=== PATIENT | female | born 1960 | race Caucasian/White ===

== ENCOUNTER 2019-11-03 11:14 | Emergency (ER) | payer OTHER, SELFPAY ==
--- NOTE | ~2019-11-03 | XR_ITS ---
EXAMINATION: XR chest 2V EXAM DATE: 11/03/2019 12:27 INDICATION: Shortness of breath, cough, congestion, sinus pressure, headache. History of asthma. TECHNIQUE: Frontal and lateral projections of the chest obtained and reviewed. There is no prior hao dy for comparison. FINDINGS: The lungs are clear. There are no pleural effusions. The cardiomediastinal silhouette is within normal limits. There is no pneumothorax suspected. The bones and soft tissues are unremarkab le. IMPRESSION: No acute cardiopulmonary findings. Reviewed, dictated and finalized at location A.
[2019-11-03 11:21] VITALS: BP 124/75; PULSE 76; RESP 20; TEMP 36.6; O2SAT 99
[2019-11-03 13:00] LABS: Basophils Absolute Auto 0.1 K/mm3 (0.0-0.1); Basophils Percent Auto 0.6 % (0.2-1.2); Eosinophils Absolute Auto 0.3 K/mm3 (0-0.3); Eosinophils Percent Auto 3.7 % (0-4.4); Hematocrit 42.3 % (37.0-47.0); Immature Granulocyte Absolute 0.01 K/mm3 (0.00-0.031); Immature Granulocyte Percent A 0.1 % (0-0.5); Lymphocytes Absolute Auto 2.25 K/mm3 (0.9-3.2); Mean Corpuscular HGB Conc 33.1 g/dl (32-36); Mean Corpuscular Hemoglobin 28.5 pg (26-34); Mean Corpuscular Volume 86.2 fl (80-100); Mean Platelet Volume 10.2 fl (7.4-10.4); Monocytes Absolute Auto 0.5 K/mm3 (0.1-0.6); Monocytes Percent Auto 6.6 % (2.6-8.5); Neutrophils Absolute Auto 4.7 K/mm3 (1.3-6.7); Platelet Count Result 257 k/mm3 (150-375); Red Blood Count 4.91 M/mm3 (4.2-5.4); White Blood Count 7.8 K/mm3 (4.5-10.0)
[2019-11-03 13:15] LABS: Anion Gap 5 mmol/L (8-16); Blood Urea Nitrogen 13 mg/dL (7-17); Calcium 9.7 mg/dL (8.4-10.2); Carbon Dioxide 28 mmol/L (22-30); Chloride 105 mmol/L (98-107); Estimated Glomerular Filt Rate > 60; Glucose 98 mg/dL (65-105); Potassium 4.1 mmol/L (3.4-5.0); Sodium 138 mmol/L (137-145)
--- NOTE | 2019-11-03 13:15 | ED.GENADULT ---
HPI - General Adult General Chief complaint: Upper Respiratory Infection Stated complaint: sinus headache, chest cold Time Seen by Provider: 11/03/19 12:09 Source: patient History of Present Illness HPI narrative: Patient is a 59 y/o female complaining of facial pain, nasal congestion, right ear pain for last 2 days. She also has some chest tightness and cough. She denies any fever. She has been taking Zyrtec for allergies, but it's not helping with her symptoms. She denies any known exposure to COVID. Related Data Home Medications Medication Instructions Recorded Confirmed cetirizine [Zyrtec] 10 mg PO DAILY 11/03/19 guaifenesin [Mucinex] 1,200 mg PO BID 11/03/19 Allergies Allergy/AdvReac Type Severity Reaction Status Date / Time aloe Allergy Rash Verified 11/03/19 11:32 azithromycin Allergy Cramping Verified 11/03/19 11:32 [From Zithromax Z-Kemal] of the Muscles dextromethorphan Allergy Anaphylaxis Verified 11/03/19 11:32 [From Benylin DM] Review of Systems Constitutional: Constitutional: Denies chills, Denies fever(s), Denies headache(s) and Denies weakness Eyes: Eyes: Denies blurry vision ENT: Reports facial pain, Reports headache(s), Reports nasal congestion, Denies neck pain and Reports sore throat Cardiovascular: Cardiovascular: Reports chest pain and Denies dyspnea Respiratory: Respiratory: Reports cough and Denies dyspnea Gastrointestinal: Gastrointestinal: Denies abdominal pain, Denies diarrhea, Denies nausea and Denies vomiting Genitourinary: Genitourinary: Denies hematuria and Denies dysuria Musculoskeletal: Musculoskeletal: Denies back pain and Denies neck pain Neurologic: Denies headache(s) and Denies weakness Exam Const: General: no acute distress and well developed Orientation/consciousness: oriented to person, oriented to place, oriented to time and patient oriented x3 HENMT: Head: normocephalic Ears: external ears normal General nose exam: Normal external nose present Eyes: General: appearance normal, both eyes and all related structures Conjunctivae: conjunctivae normal Neck: Neck: normal visual inspection and full ROM Chest: Chest palpation & inspection: normal inspection of the chest and no tenderness Resp: Effort & Inspection: normal respiratory effort Auscultation: clear to auscultation bilaterally Cardio: Rate: regular rate Rhythm: regular rhythm GI: GI Palp: No abdominal tenderness and Yes Soft to palpation Skin: General skin exam: normal color and turgor normal Neuro: General: oriented to person, oriented to place, oriented to time and patient oriented x3 Cognition (Neuro): normal cognition Extrem: General: normal to inspection, full ROM and no pedal edema Psych: Appearance: grossly normal Mental Status: mental status grossly normal Affect: normal affect Course Reevaluation(s) Reevaluation #1: Patient declined EKG. Patient did not mention sore throat during initial interview, but did states that she has sore throat when she was about to be discharged. Posterior pharynx appear without erythema or abscess on re-exam. Strep test was offered, but patient declined. Date: 11/03/19 Vital Signs Vital signs: Vital Signs Temperature 36.6 C 11/03/19 11:21 Pulse Rate 76 11/03/19 11:21 Respiratory Rate 20 11/03/19 11:21 Blood Pressure 124/75 11/03/19 11:21 Pulse Oximetry 99 11/03/19 11:21 Temperature 36.6 C 11/03/19 11:21 Pulse Rate 75 11/03/19 14:39 Respiratory Rate 16 11/03/19 14:39 Blood Pressure 138/75 11/03/19 14:39 Pulse Oximetry 100 11/03/19 14:39 Medical Decision Making Vital Signs Vital Signs: Vital Signs Temperature 36.6 C 11/03/19 11:21 Pulse Rate 76 11/03/19 11:21 Respiratory Rate 20 11/03/19 11:21 Blood Pressure 124/75 11/03/19 11:21 Pulse Oximetry 99 11/03/19 11:21 Temperature 36.6 C 11/03/19 11:21 Pulse Rate 75 11/03/19 14:39 Respiratory Rate 16 11/03/19 14:3
--- NOTE | 2019-11-03 13:45 | PC.NURSE ---
attempted to do ekg on pt, upon arrival to room pt visibly upset, she has gotten dressed. pt tearful, throwing her hands up in the air and states that the doctor has not listened to her and she is not happy that he has not been back to see her or to explain why he keeps adding orders. pt states that she wants to refuse the ekg. CARLITOS Gonzalez informed, no new orders.
[2019-11-03 13:50] LABS: Troponin I < 0.012 ng/mL (0.000-0.034)
--- NOTE | 2019-11-03 14:24 | PC.NURSE ---
CHECKED ON PT AGAIN, PT PACING IN ROOM STILL VERY UPSET, TRACE EVIDENCE TECHNICIAN INFORMED OF PT COMPLAINTS, STATES SHE WILL SPEAK WITH THE ERP. NO NEW ORDERS.
--- NOTE | 2019-11-03 14:30 | PC.NURSE ---
ERP PRIMO AT BEDSIDE ASSESSING PT CONCERNS AT THIS TIME.
[2019-11-03 14:39] VITALS: BP 138/75; PULSE 75; RESP 16; O2SAT 100
== END 2019-11-03 14:41 | disposition home or self-care (01) ==
PROVIDERS: Emergency Provider Emergency Medicine
DX: J06.9 Acute upper respiratory infection, unspecified (principal); T78.40XA Allergy, unspecified, initial encounter
CPT/HCPCS: 36415; 71046; 80048; 84484; 85025; 99284

== ENCOUNTER 2021-05-08 08:34 | Emergency (ER) | payer OTHER, SELFPAY ==
--- NOTE | ~2021-05-08 | XR_ITS ---
XR foot RT min 3V 05/08/2021 09:09 Indication: Right foot pain after fall Procedure: 4 views right foot Comparison: No prior studies for comparison. Findings: There is mild osteoarthritis of the first MTP joint. Lisfranc joint intact. Small degenerat jeanmarie calcaneal enthesophyte at the plantar surface. No acute fracture, subluxation or dislocation. Impression: 1: No acute fracture. Reviewed, dictated and finalized at location A. Impression: 1: No acute fracture.
[2021-05-08 08:38] VITALS: BP 122/46; PULSE 84; RESP 18; TEMP 36.7; O2SAT 99
--- NOTE | 2021-05-08 09:10 | ED.FALL ---
HPI - Fall General Chief Complaint: Fall Stated Complaint: right foot pain Time Seen by Provider: 05/08/21 08:59 Source: patient and RN notes reviewed Mode of arrival: ambulatory Limitations: no limitations History of Present Illness HPI Narrative: Patient is 60 years old white female drove herself to the emergency room complaining of right ankle pain, after tripping and falling from standing position yesterday. Patient denies other injuries. Patient denies any fever, chills, nausea, vomiting, chest pain, back pain, headache or urinary symptoms Related Data Home Medications Medication Instructions Recorded Confirmed cetirizine [Zyrtec] 10 mg PO DAILY 11/03/19 albuterol sulfate INHALATION 05/08/21 05/08/21 Allergies Allergy/AdvReac Type Severity Reaction Status Date / Time aloe Allergy Rash Verified 05/08/21 08:59 azithromycin Allergy Cramping Verified 05/08/21 08:59 [From Zithromax Z-Kemal] of the Muscles dextromethorphan Allergy Anaphylaxis Verified 05/08/21 08:59 [From Benylin DM] Review of Systems Review of Systems: CONSTITUTIONAL: Denies fever, chills, or sweats. EYES: Denies visual changes, redness, or discharge. ENT: Denies rhinorrhea, congestion, sore throat, or otalgia. CARDIOVASCULAR: Denies chest pain, palpitations, or edema. RESPIRATORY: Denies cough or dyspnea. GASTROINTESTINAL: Denies abdominal pain, nausea, vomiting, or diarrhea. GENITOURINARY: Denies dysuria or hematuria. SKIN: Denies rash or itching. MUSCULOSKELETAL: Denies back pain, joint pain, or myalgia. NEUROLOGIC: Denies headache, numbness, or weakness. PSYCHIATRIC: Denies anxiety or depression. Exam Narrative: General appearance: Well-developed, well-nourished Skin: Normal color Head: Normocephalic, nontraumatic Eyes: Clear conjunctiva ENT: Oropharynx normal, ears normal, nose normal Neck: Supple, nontender Chest and respiratory: Airway patent, no respiratory distress, no accessory muscle use Heart: Regular rate/rhythm Abdomen: Soft, nontender, no organomegaly, quiet bowel sounds Vascular: Normal peripheral pulses, normal capillary refill. Musculoskeletal: Right ankle showed the diffuse tenderness, anteriorly, slight limited range of motion, no deformity or bruises Neurologic: Alert and oriented ?3, SODA DISPENSER is normal as tested, no gross motor deficit Course Course Emergency Course: Stable Vital Signs Vital signs: Vital Signs Temperature 36.7 C 05/08/21 08:38 Pulse Rate 84 05/08/21 08:38 Respiratory Rate 18 05/08/21 08:38 Blood Pressure 122/46 L 05/08/21 08:38 Pulse Oximetry 99 05/08/21 08:38 Temperature 36.7 C 05/08/21 08:38 Pulse Rate 73 05/08/21 09:51 Respiratory Rate 16 05/08/21 09:51 Blood Pressure 104/50 L 05/08/21 09:51 Pulse Oximetry 98 05/08/21 09:51 MDM - Fall MDM Narrative Medical decision making narrative: Right ankle trauma Imaging Data Radiologist's impression: Impressions Foot X-Ray 05/08/21 09:10 Impression: 1: No acute fracture. Critical Care Time Critical Care Time Critical Care Time: No Discharge Plan Discharge Clinical Impression: Right ankle sprain Qualifiers: Encounter type: initial encounter Involved ligament of ankle: unspecified ligament Qualified Code(s): S93.401A - Sprain of unspecified ligament of right ankle, initial encounter Patient Disposition: Home, Self-Care Condition: Stable Instructions: Antibiotic Form, Ankle Sprain (ED) Additional Instructions: Return if symptoms are worsening , call your family physician for appointment, take Tylenol as as needed for aches and pain, continue home medications., keep right foot elevated, crutc
[2021-05-08 09:51] VITALS: BP 104/50; PULSE 73; RESP 16; O2SAT 98
== END 2021-05-08 09:51 | disposition home or self-care (01) ==
PROVIDERS: Emergency Provider Emergency Medicine
DX: S93.401A Sprain of unspecified ligament of right ankle, initial encounter (principal); W01.0XXA Fall on same level from slipping, tripping and stumbling without subsequent striking against object, initial encounter
CPT/HCPCS: 73630; 99283

== ENCOUNTER 2021-08-29 10:23 | Emergency (ER) | payer OTHER, SELFPAY ==
[2021-08-29] VITALS (20 sets, daily range): BP systolic 118–132; BP diastolic 58–88; PULSE 69–101; RESP 14–16; TEMP 36.3; O2SAT 98–100
--- NOTE | ~2021-08-29 | XR_ITS ---
EXAMINATION: XR shoulder RT min 2V DATE: 08/29/2021 12:11 INDICATION: Right shoulder pain. Fall. TECHNIQUE: 4 views of right shoulder were obtained. COMPARISON: None. FINDINGS: Bone alignment is normal. No fracture. Glenohumeral joint is normal. There is moderate acro mioclavicular joint osteoarthritis. IMPRESSION: 1. Moderate right acromioclavicular joint osteoarthritis. Reviewed, dictated and finalized at location A.
--- NOTE | ~2021-08-29 | XR_ITS ---
EXAMINATION: XR shoulder LT min 2V DATE: 08/29/2021 12:11 INDICATION: Left shoulder pain. TECHNIQUE: 4 views of left shoulder were obtained. COMPARISON: None. FINDINGS: Bone alignment is normal. No fracture. There is mild osteoarthritis of the acromioclavicula r joint. Glenohumeral joint is normal. IMPRESSION: 1. Mild acromioclavicular joint osteoarthritis. Reviewed, dictated and finalized at location A.
--- NOTE | ~2021-08-29 | CT_ITS ---
EXAMINATION: CT cervical spine wo con DATE: 08/29/2021 12:05 INDICATION: Fall with head injury TECHNIQUE: Computed tomography (CT) of the cervical spine was performed without intravenous contrast. Automated exposure control and iterative reconstruction technique were employed. The dose-length pro duct was 355.69 mGy-cm. COMPARISON: None FINDINGS: Alignment is normal. Vertebral body heights are normal. No fracture. Mild disc height loss at C5-C6 w ith severe bilateral uncovertebral osteoarthritis contributing to mild bilateral neural foraminal mani nosis at this level. Small posterior endplate osteophytes also result in minimal central canal stenos is at this level. Multilevel mild cervical facet osteoarthritis. Multinodular goiter. Cervical soft t issues are otherwise unremarkable. Visualized apices of lungs are clear. IMPRESSION: 1. Cervical spondylosis, mild at C5-C6 and otherwise minimal. No acute osseous abnormality. Reviewed, dictated and finalized at location B.
--- NOTE | ~2021-08-29 | CT_ITS ---
EXAMINATION: CT thoracic spine wo con DATE: 08/29/2021 13:11 INDICATION: Thoracic spine midline tenderness. Fall. TECHNIQUE: Computed tomography (CT) of the thoracic spine was performed without intravenous contrast. Automated exposure control and iterative reconstruction technique were employed. The dose-length pro duct was 731.85 mGy-cm. COMPARISON: Chest 2 views 11/03/2019 FINDINGS: There is mild scarring at the lung apices. There is 8 degrees dextrocurvature of thoracic s pine. There is a compression fracture of T4 with less than 1/5 loss of height. There is a benign bone island in T3 posterior elements. Intervertebral disc heights are normal. There is multilevel mild fa cet joint osteoarthritis. No neural foraminal stenosis. No central canal stenosis. IMPRESSION: 1. Age-indeterminate T4 compression fracture, new from 11/03/2019. Reviewed, dictated and finalized at location A.
--- NOTE | ~2021-08-29 | CT_ITS ---
EXAMINATION: CT brain wo con DATE: 08/29/2021 12:04 INDICATION: Head injury post fall TECHNIQUE: Computed tomography (CT) of the head was performed without intravenous contrast. Sagittal and coronal reconstructions were performed. The mA was adjusted according to patient size. Iterative reconstruction technique was employed. The dose-length product was 529.67 mGy-cm. COMPARISON: None FINDINGS: No fracture. No acute intracranial hemorrhage, acute infarction or abnormal extra axial fluid collect ion. Ventricles are normal and symmetric. No mass/mass effect. The orbits, paranasal sinuses and mast oid air cells are normal. IMPRESSION: 1. Normal head CT. No fracture or acute intracranial process. Reviewed, dictated and finalized at location B.
--- NOTE | 2021-08-29 12:58 | ED.FALL ---
HPI - Fall General Chief Complaint: Fall <YONAS Brown Last Filed: 08/29/21 19:35> Stated Complaint: head and shoulder blade pain <YONAS Brown Last Filed: 08/29/21 19:35> Time Seen by Provider: 08/29/21 11:49 <YONAS Brown Last Filed: 08/29/21 19:35> Source: patient <YONAS Brown Last Filed: 08/29/21 19:35> Mode of arrival: ambulatory <YONAS Brown Last Filed: 08/29/21 19:35> Limitations: no limitations <YONAS Brown Last Filed: 08/29/21 19:35> History of Present Illness HPI Narrative: Patient is a 60-year-old female who presents the ED with report of fall and head injury. Patient reports she was trying to open her garage door manually today and with using the pull level, when the string snapped, causing her to fall backwards. She hit her posterior head on her concrete garage floor, but denied loss of consciousness. Did have a brief episode of dizziness after the fall, but denies any since. No vision changes. She complains of pain to her occipital head, posterior neck, upper back, and bilateral shoulder blades, worse on right side. She has not taken anything for pain prior to arrival. She is not on any blood thinners. No lower back pain. No chest pain, difficulty breathing, pain with inspiration. <YONAS Brown Last Filed: 08/29/21 19:35> Related Data Home Medications: Home Medications Medication Instructions Recorded Confirmed cetirizine 10 mg capsule (Zyrtec) 10 mg PO DAILY 11/03/19 albuterol sulfate 90 mcg/actuation inhalation 05/08/21 05/08/21 aerosol inhaler <YONAS Brown Last Filed: 08/29/21 19:35> Allergies/Adverse Reactions: Allergies Allergy/AdvReac Type Severity Reaction Status Date / Time aloe Allergy Rash Verified 08/29/21 10:42 azithromycin Allergy Cramping Verified 08/29/21 10:42 [From Zithromax Z-Kemal] of the Muscles dextromethorphan Allergy Anaphylaxis Verified 08/29/21 10:42 [From Benylin DM] <Loni Davis PA-C - Last Filed: 08/29/21 19:35> Review of Systems Review of Systems: CONSTITUTIONAL: Denies fever, chills, or sweats. EYES: Denies visual changes. CARDIOVASCULAR: Denies chest pain. RESPIRATORY: Denies dyspnea, pain with inspiration. GASTROINTESTINAL: Denies abdominal pain, nausea, vomiting, or diarrhea. SKIN: Denies wounds. MUSCULOSKELETAL: Reports posterior head pain, neck pain, upper back pain, scapular pain. Denies low back pain. NEUROLOGIC: Reports HI, dizziness. Denies LOC, numbness, or weakness. <Loni Davis PA-C - Last Filed: 08/29/21 19:35> All systems reviewed & are unremarkable except as noted in HPI and below <Loni Davis PA-C - Last Filed: 08/29/21 19:35> PMFSH Past Medical History Medical History: Medical History (Updated 08/30/21 @ 00:00 by [email or web address]) No significant past medical history <Loni Davis PA-C - Last Filed: 08/29/21 19:35> Surgical History Surgical History: Surgical History (Updated 08/29/21 @ 19:31 by Loni Davis PA-C) No pertinent past surgical history <Loni Davis PA-C - Last Filed: 08/29/21 19:35> Social History Social History: Social History (Updated 08/29/21 @ 19:31 by Loni Davis PA-C) Smoking status: Never smoker <Loni Davis PA-C - Last Filed: 08/29/21 19:35> Exam Narrative: GENERAL: Well appearing, well-nourished, non-toxic, in no acute distress. HEAD: Normocephalic, atraumatic. EYES: PERRL/EOMI, conjunctivae clear bilaterally. NECK: Supple. No adenopathy, no masses. Normal range of motion. Minimal lower cervical midline spinal tenderness. RESPIRATORY: Airway patent, respirations nonlabored. Clear to auscultation bilaterally, no rales, rhonchi, wheezing. No splinting. CARDIOVASCULAR: Regular rate and rhythm without murmurs, rubs, or gallops. Peripheral pulses 2+ and equal bilaterally. ABDOMINAL: Soft, nontender, nondistended
[2021-08-29] MEDS: KETOROLAC (*BKC) 60 MG/2 ML VIAL IM (13:24)
== END 2021-08-29 14:23 | disposition home or self-care (01) ==
PROVIDERS: Emergency Provider Emergency Medicine
DX: S09.90XA Unspecified injury of head, initial encounter (principal); S22.040A Wedge compression fracture of fourth thoracic vertebra, initial encounter for closed fracture; M47.812 Spondylosis without myelopathy or radiculopathy, cervical region; M19.012 Primary osteoarthritis, left shoulder; M19.011 Primary osteoarthritis, right shoulder; W18.39XA Other fall on same level, initial encounter
CPT/HCPCS: 70450; 72125; 72128; 73030; 96372; 99284; J1885

== ENCOUNTER 2021-10-20 10:32 | Outpatient (CLI) | payer OTHER, SELFPAY ==
--- NOTE | ~2021-10-20 | XR_ITS ---
EXAMINATION: XR thoracic spine 2V DATE: 10/20/2021 10:59 INDICATION: Unspecified fracture of unspecified thoracic vertebral body TECHNIQUE: 'S of the thoracic spine are obtained. COMPARISON: CT, 08/29/2021 FINDINGS: When compared to the prior CT, there is no change in the previously described T4 compressio n fracture fracture is identified. Bone alignment is normal. Small degenerative osteophytes project f rom the anterior endplates of multiple vertebral bodies. There is mild loss of intervertebral disc sp kimmy height at multiple levels in the thoracic spine. IMPRESSION: 1. Stable compression fracture of T4. Reviewed, dictated and finalized at location A.
== END 2021-10-20 10:33 | disposition home or self-care (01) ==
PROVIDERS: Visit Provider Neurological Surgery
DX: M48.54XA Collapsed vertebra, not elsewhere classified, thoracic region, initial encounter for fracture (principal)
CPT/HCPCS: 72070

== ENCOUNTER 2021-12-01 10:12 | Outpatient (CLI) | payer OTHER, SELFPAY ==
--- NOTE | ~2021-12-01 | XR_ITS ---
EXAMINATION: XR thoracic spine 2V DATE: 12/01/2021 10:38 INDICATION: T4 compression fracture TECHNIQUE: One AP, lateral and lateral swimmer's views of the thoracic spine were obtained. COMPARISON: 10/20/2021 FINDINGS: Alignment is normal. No significant interval change in a T4 superior endplate compression fracture wi th approximately 20% vertebral body height loss which is best appreciated on the frontal projection. Remaining vertebral body heights are normal. Mild disc height loss at several levels in the mid to lo wer thoracic spine. Visualized portion of the lungs are clear. Heart size and mediastinal silhouette are normal.. IMPRESSION: 1. No interval change in a T4 compression fracture with 20% vertebral body height loss. Reviewed, dictated and finalized at location B. IMPRESSION: 1. No interval change in a T4 compression fracture with 20% vertebral body heig ht loss.
== END 2021-12-01 10:13 | disposition home or self-care (01) ==
PROVIDERS: Visit Provider Neurological Surgery
DX: S22.009A Unspecified fracture of unspecified thoracic vertebra, initial encounter for closed fracture (principal)
CPT/HCPCS: 72070

== ENCOUNTER 2024-06-24 08:57 | Outpatient (CLI) | payer OTHER, SELFPAY ==
--- NOTE | ~2024-06-24 | XR_ITS ---
XR chest 2V 06/24/2024 09:12 Indication: Acute cough Procedure: 2 view chest Comparison: 11/03/2019 Findings: Heart size normal. No focal air space disease, pulmonary edema, pleural effusion or suspect ed pneumothorax. There is apical pleural thickening/scarring. Impression: 1: No acute cardiopulmonary disease. Reviewed, dictated and finalized at location A. Impression: 1: No acute cardiopulmonary disease.
== END 2024-06-24 08:58 | disposition home or self-care (01) ==
LOC: MICIMG 08:59
DX: R05.1 Acute cough (principal)
CPT/HCPCS: 71046

== ENCOUNTER 2024-10-06 13:57 | Emergency (ER) | payer MEDICARE, OTHER, SELFPAY ==
[2024-10-06] VITALS (21 sets, daily range): BP systolic 106–138; BP diastolic 39–61; PULSE 70–94; RESP 12–28; TEMP 36.3–36.5; O2SAT 95–99
--- NOTE | ~2024-10-06 | XR_ITS ---
EXAMINATION: XR chest 2V 10/06/2024 16:17 INDICATION: Chest pain and epigastric pain for 2 hours COMPARISON: Chest x-ray 06/24/2024 and 11/03/2019 FINDINGS: The cardiomediastinal silhouette is within normal limits. There are no pleural effusions. There is no pneumothorax suspected. No focal pulmonary consolidation. Grossly stable biapical scarr ing. IMPRESSION: 1: NO ACUTE CARDIOPULMONARY DISEASE. Reviewed, dictated and finalized at location A.
--- OUTSIDE RECORDS SUMMARY | 2024-10-06 15:05 | XMS_ITS ---
Author Organization [facility]. Address [address] [place] [id number] Care Team Providers Care Wilderness Guide Name Role Phone Dr. Farooq Kowalski Primary Care Provider [phone] Migration, Provider Unavailable Unavailable Allergies Allergen (clinical drug ingredient) Drug/Non Drug Allergy documented on EMR Reaction Allergy Type Onset Date Status BENILYN COUGH MED (uncoded) SOB Allergy Active Vaccine product containing Influenza virus antigen (medicinal product) FLU SHOT (uncoded) stomach upset Allergy A ctive Claritin insomnia Drug Allergy Active azithromycin Zithromax cramps Drug Allergy Acti ve Aloe rash Drug Allergy Active hydrocodone HYDROcodone dizziness Drug Allergy Act jeanmarie [facility] Conversion Encounter Medications Medication SIG (Take, Route, Frequency, Duration) Notes Start Date End Date Status PROAIR HFA 90 MCG/INH AEROSOL 2 PUFF(S) INHALED 4 TIMES A DAY; Duration: 30 DAYS *Please review for potential replacement for e-prescription and drug interaction check* 09/12/2017 Active Allergy Relief 10MG 1 DAILY *Please revi ew and [facility]. If intended option is not shown, discontinue and re-order from Quick Search* Active NEBULIZER MACHINE WITH ADULT MASK & TUBING DX: J20.9 USING DX J45.998 EVERY 6 HOURS NEEDED *Please review for potential replacement for e-prescription and drug interaction check* 07/02/2019 Active ASA 81MG EC TABLET ORALLY *Please revie w for potential replacement for e-prescription and drug interaction check* Active Encounters Encounter Location Date Provider Diagnosis [facility] [address] [place], [place] [id number] 11/10/2023 Provider Migration Mild intermittent asthma, uncomplicated J45.20 Assessments Encounter Date Diagnosis (ICD Code) Assessment Notes Treatment Notes Treatment Clinical Notes Section Notes 11/10/2023 Mild intermittent asthma, uncomplicated (ICD-10 - J45.20) Plan Of Treatment Medication Medication Name Sig Start Date Stop Date Notes PROAIR HFA 90 MCG/INH AEROSOL 2 PUFF(S) INHALED 4 TIMES A DAY; Duration: 30 DAYS 09/12/2017 *Please review for potential replacement for e-prescription and drug interaction check* NEBULIZER MACHINE WITH ADULT MASK & TUBING DX: J20.9 USING DX J45.998 EVERY 6 HOURS NEEDED 07/02/2019 *Please review for potential replacement for e-prescription and drug interaction check* Progress Notes * NATE LOUIS ADOB:1960 (64 yo F)Acc No.[id number]:11/10/2023 Patient: NATE HIDALGO Provider: :1960 A ge:63 Y S ex:Female Date:11/10/2023 Address[facility] [id number] Pcp:Dr. Farooq Kowalski Subjective: * Chief Complaints: * M tum To [facility] Conversion Encounter * Medications: T akingAllergy Relief 10MG 1 DAILY ASA 81MG EC TABLET ORALLY Taking Allergy Relief 10MG 1 DAILY Taking ASA 81MG EC TABLET ORALLY * Allergies: C laritin: insomniaZithromax: crampsAloe: rashFLU SHOT: stomach upsetBENILYN COUGH MED: SOBHYDROcodone: dizziness Assessment: * Assessment: 1. M ild intermittent asthma, uncomplicated - J45.20 Plan: * Treatment: 2. O thers Start NEBULIZER MACHINE WITH ADULT MASK & TUBING, DX: J20.9, USING, DX J45.998, EVERY 6 HOURS NEEDED, 1, Refills 0. * Electronic signature of Prov ider Migration on 10/06/2024 at 03:05 PM CDT Sign off status: Pending * Provider: Date: 0 11/10/2023 Generated for Stacy davis/Ferdinand/eTransmitting on: 0 10/06/2024 03:05 PM CDT
--- OUTSIDE RECORDS SUMMARY | 2024-10-06 15:05 | XMS_ITS | Patient Health Record ---
Author Organization [facility]. Address [address] [place] [phone] Care Team Providers Care Husker Operator Name Role Phone Dr. Farooq Kowalski Primary Care Provider Migration, Provider Unavailable Unavailable Allergies Allergen (clinical [...] hydrocodone HYDROcodone dizziness Drug Allergy Act jeanmarie Reason For Referral No Information Medications Medication SIG (Take, Route, Frequency, Duration) Notes Start Date End Date Status PROAIR HFA 90 MCG/INH AEROSOL 2 PUFF(S) INHALED 4 TIMES A DAY; Duration: 30 DAYS *Please review for potential replacement for e-prescription and drug interaction check* 09/12/2017 Active Allergy Relief 10MG 1 DAILY *Please revi ew and pick correct strength-formulation from ChatLingual options. If intended option is not shown, discontinue and re-order from Quick Search* Active NEBULIZER MACHINE WITH ADULT MASK & TUBING DX: J20.9 USING DX J45.998 EVERY 6 HOURS NEEDED *Please review for potential replacement for e-prescription and drug interaction check* 07/02/2019 Active ASA 81MG EC TABLET ORALLY *Please revie w for potential replacement for e-prescription and drug interaction check* Active Immunizations Vaccine Route Administration Date Status Comme nts TDAP (adult) IM Intramuscular 01/01/2018 Complete Social History Social History Additional Details Category Social Info Options Details Social History Alcohol: no Sexually active: yes Recreational drug use: no Exercise: no Caffeine: yes frequency: Soda occasionally, maybe 1 can a day Problems Problem Type SNOMED Code ICD Code Onset Dates Problem Status W/U Status Risk Notes Problem Acute bronchiolitis (5154472) Acute bronchiolitis due to other infectious organisms (J21.8) Active confirmed Problem Allergic rhinitis du e to allergen (52968115) Allergic rhinitis due to allergen (J30.2) Active confirmed Problem Bronchitis (90745508) Bronchitis NOS (490) Active confirmed Problem Urinary frequency (437532352) Urinary frequency (788.41) Active confirmed Problem Bartholin's gland cy st (85194049) Bartholin's gland cyst (616.2) Active confirmed Problem Lipoma (30691146) LIPOMA NOS (214.9) Active confirmed Problem Asthma (925990999) Asthma NOS (J45.998) Active confirmed Problem Routine gynecologic examination done (08024296304148) ROUTINE WASTE REMOVALIST EXAMINATION (V72.31) Active confirmed Problem Allergic rhinitis (08259115) allergic rhinitis (477.9) Active confirmed Problem Chill (47905606) Chills (without fever) (780.64) Active confirmed Problem Fever (644344854) Fever (780.61) Active confirm ed Problem Mixed hyperlipidemia (312992284) Mixed hyperlipidemia (E78.2) Active confirmed Problem Dysfunction of right eustachian tube (6982455566077776) Other specified disorders of Eustachian tube, right ear (H69.81) Active confirmed Problem Acute maxillary sinusitis (16495905) Acute recurrent maxillary sinusitis (J01.01) Active confirmed Problem Acute bronchitis (62639815) bronchitis acute due to other organisms (J20.8) Active confirmed Problem Chronic rhinitis (02896553) Chronic rhinitis (J31.0) Active confirmed Problem Mild intermittent asthma (338246515) Mild intermittent asthma, uncomplicated (J45.20) Active confirmed Problem Acute interstitial pneumonitis (672015293) Acute interstitial pneumonitis (J84.114) Active confirmed Problem Gastro-esophageal reflux disease without esophagitis (518622587) Gastro-esophageal reflux disease without esophagitis (K21.9) Active confirmed Problem Arthralgia of the ankle and/or foot (631532944) Pain in left ankle and joints of left foot (M25.572) Active confirmed Problem Cervicalgia (29432951) Cervicalg ia (M54.2) Active confirmed Problem Pain in limb (26907970) Pain in right toe(s) (M79.674) Active confirmed Problem Shortness of breath (049518636) Shortness of breath (R06.02) Active confirmed Problem Pain in throat (649922956) Pain in throat (R07.0) Active confirmed Problem Right upper quadrant pain (860212745) Right upper quadrant pain (R10.11) Active confirmed Problem Nausea (726467113) Nausea (R11.0) Active confir med Problem Pain (55769895) Pain, unspecifie d (R52) Active confirmed Problem Contusion of toe (28555197) Contusion of right lesser toe(s) without damage to nail, initial encounter (S90.121A) Active confirmed Problem Pure hypercholesterolemia (072776353) hypercholesterole toña,familial (E78.01) Active confirmed Problem Microscopic hematuri a (751580414) Other microscopic hematuria (R31.2) Active confirmed Problem Headache (80420578) Headache (R51) Active confi rmed Problem Pain in left foot (966889656600322) Pain in left foot (M79.672) Active confirmed Problem Plantar fascial fibromatosis (49073890) Plantar fascial fibromatosis (M72.2) Active confirmed Problem Acute bronchospasm (94645876863537) Acute bronchospasm (J98.01) Active confirmed Problem acute bronchilitis (J21.8) Active confirmed Problem Visual disturbance (69845545) Unspecified visual disturbance (H53.9) Active confirmed Problem Sinusitis (81353478) Sinusitis (461.9) Active c onfirmed Problem Shoulder pain (65592836) shoulder pain (719.41) Active confirmed Problem Cough (41390827) Cough (496) Active confirmed Problem Radiculopathy (21210147) Radiculopathy (729.2) Active confirmed Problem Back pain (930620751) Back pain (724.5) Active confirmed Problem Urinary tract infectious disease (disorder) (21471834) UTI [Urinary tract infection] (r82.7) Active confirmed Problem Dyspnea (902890138) Dyspnea, unspecified (R06.00) Active confirmed Problem Cough (90489236) Cough (R05) Active confirmed Problem Pain in limb (63987426) Pain in right finger(s) (M79.644) Active confirmed Problem Localized, primary osteoarthritis of the hand (531530316) Unilateral primary osteoarthritis of first carpometacarpal joint, right hand (M18.11) Active confirmed Problem Acute sinusitis (63138804) acute sinusitis (J32.9) Active confirmed Problem Cough variant asthma (614180647) asthma cough variant (J45.991) Active confirmed Encounters Encounter Location Date Provider Diagnosis [facility]. [address] [place] [phone] 11/10/2023 Provider Migration Mild intermittent asthma, uncomplicated J45.20 Assessments Encounter Date Diagnosis (ICD Code) Assessment Notes Treatment Notes Treatment Clinical Notes Section Notes 11/10/2023 Mild intermittent asthma, uncomplicated (ICD-10 - J45.20) Plan Of Treatment Pending Test Test Name Order Date Cholesterol 05/04/2006 Urinalysis (in house by doctor's office) 05/16/2005 Mammogram 01/16/2011 gallbladder sono 04/30/2006 CXR 12/24/2018 CXR 03/03/2013 xray lt knee 07/05/2005 sinus xray 07/05/2006 xray right knee 07/05/2005 LEFT KNEE 07/26/2011 CHEST X-RAY 01/17/2012 CHEST X-RAY 11/24/2005 CHEST X-RAY 02/08/2006 CHEST X-RAY 07/05/2006 CHEST X-RAY 03/19/2018 CHEST X-RAY 05/08/2018 CHEST X-RAY 12/05/2010 CHEST X-RAY 01/01/2014 CHEST X-RAY 09/03/2017 CHEST X-RAY 05/09/2017 rib xray 01/23/2018 PFT'S PRE & POST 12/05/2010 left foot xray 01/03/2018 left foot xray 01/20/2016 biopsy 11/03/2013 Lipid Profile (Fasting) 01/16/2011 SONO - Abdominal/gallbladder 08/13/2015 respiratory allergy test 07/15/2013 excision and destruction 11/03/2013 right foot xray 04/01/2018 48 hour holter monitor 10/16/2013 clavicle right 08/13/2015 UA/M w/rflx Culture, Routine 05/15/2017 CBC With Differential/Platelet 8 Lipid Panel 05/15/2017 CHEM 16 05/15/2017 Insurance Providers Payer Name Payer Address Payer Phone Subscriber Number Group Number Insured Name Patient Relationship to Insured Coverage Start Date Coverage End Date [employer] [address] [place] [id number] [employer] Self - patient is the insured 3 [employer] [address] [place] [address] [employer] [place] Self - patient is the insured Medications Administered Medication Instructions Date of Administration Dosage Notes Rocephin injection 09/03/2017 2 mL 09/07 Rocephin injection 09/04/2017 1 g Medical (General) History Medical History History ICD Code asthma frequent bouts of bronchitis Seasonal Allergy Surgical History Surgery Date(Month/Year) had teeth removed 04/2011 Hospitalization History Reason Date(Month/Year) [facility] Bronchitis 08/2017
--- NOTE | 2024-10-06 15:26 | ED.GENADULT ---
HPI - General Adult General Chief complaint: Unspecified <Fiorella Molina PA-C - Last Filed: 10/07/24 10:04> Stated complaint: shaky epigastric pain <Fiorella Molina PA-C - Last Filed: 10/07/24 10:04> Time Seen by Provider: 10/06/24 15:27 <Fiorella Molina PA-C - Last Filed: 10/07/24 10:04> Focused HPI: This is a 64 year old female that presents to the ER for exertional shortness of breath. Ongoing since this morning. Reports she feels shaky. Has epigastric abdominal discomfort. GENERAL: Well-appearing, well-nourished, and in no acute distress. HEAD: Normocephalic, atraumatic. CHEST: Clear to auscultation. ?No respiratory distress. HEART: Regular rate and rhythm.? NEURO: ?Alert and oriented x3. Patient screened in triage and initial orders placed.? ?Additional care and disposition to be based upon?diagnostic testing and treatment. <Fiorella Molina PA-C - Last Filed: 10/07/24 10:04> History of Present Illness HPI narrative: Agree with HPI. Patient reports epigastric/lower sternal chest discomfort that has improved. Has not eaten since this morning, does feel slightly nauseated. No cardiac history. <Brown Croft MD - Last Filed: 10/06/24 22:04> Related Data Home medications: Home Medications ?Medication ?Instructions ?Recorded ?Confirmed ?Last Taken ?Type albuterol sulfate 90 mcg/actuation inhalation 05/08/21 12/01/21 Unknown History aerosol inhaler acetaminophen 650 mg 650 mg PO Q12H 12/01/21 12/01/21 Unknown History tablet,extended release (Pain Relief (acetaminophen)) benzonatate 100 mg capsule 100 mg PO TID PRN 12/01/21 12/01/21 Unknown History <Fiorella Molina PA-C - Last Filed: 10/07/24 10:04> Allergies/adverse reactions: Allergies Allergy/AdvReac Type Severity Reaction Status Date / Time aloe Allergy Rash Verified 12/01/21 11:01 azithromycin (From Zithromax Allergy Cramping Verified 12/01/21 11:01 Z-Kemal) of the Muscles dextromethorphan (From Allergy Anaphylaxis Verified 12/01/21 11:01 Benylin DM) <Fiorella Molina PA-C - Last Filed: 10/07/24 10:04> Review of Systems Review of Systems: Gen.: Denies fevers or chills Eyes: Denies eye pain or visual change ENT: Denies congestion Respiratory: Shortness of breath, resolved. Denies cough. CV: Chest pain. Denies palpitations. GI: Denies abdominal pain nausea, emesis or diarrhea denies burning, urgency, frequency or hematuria Musculoskeletal: Denies back pain or muscle pain Neuro: Light headedness. Denies numbness, tingling, weakness or focal weakness Skin: Denies rash Except as documented, all other systems reviewed and negative <Brown Croft MD - Last Filed: 10/06/24 22:04> [facility] Past Medical History Medical History: Medical History Arthritis Asthma Bronchitis No significant past medical history <Fiorella Molina PA-C - Last Filed: 10/07/24 10:04> Surgical History Surgical History: Surgical History History of tonsillectomy No pertinent past surgical history <Fiorella Molina PA-C - Last Filed: 10/07/24 10:04> Family History Family History: Family History Other Asthma Diabetes mellitus Heart disease <Fiorella Molina PA-C - Last Filed: 10/07/24 10:04> Social History Social History: Social History Smoking status: Former smoker Alcohol intake: never Substance use: never Substance use type: does not use Living arrangements: alone Occupation/Education: occupation Additional occupation/education comments: [employer] <Fiorella Molina PA-C - Last Filed: 10/07/24 10:04> Course Vital Signs Vital signs: Vital Signs Temperature 97.4 F L 10/06/24 13:57 Pulse Rate 94 10/06/24 13:57 Respiratory Rate 18 10/06/24 13:57 Blood Pressure 108/57 L 10/06/24 13:57 Pulse Oximetry 99 10/06/24 13:57 Oxygen Delivery Room Air 10/06/24 13:57 Temperature 97.7 F 10/06/24 20:11 Pulse Rate 73 10/06/24 20:11 Respiratory Rate 16 10/06/24 20:11 Blood Pressure 106/61 10/06/24 20:11 Pulse Oximetry 97 10/06/24 20:11 Oxygen Delivery Room Air 10/06/24 17:42 <Fiorella Molina PA-C - Last Filed: 10/07/24 10:04> Vital Signs Temperature 97.4 F L 10/06/24 13:57 Pulse Rate 94 10/06/24 13:57 Respiratory Rate 18 10/06/24 13:57 Blood Pressure 108/57 L 10/06/24 13:57 Pulse Oximetry 99 10/06/24 13:57 Oxygen Delivery Room Air 10/06/24 13:57 Temperature 97.7 F 10/06/24 20:11 Pulse Rate 73 10/06/24 20:11 Respiratory Rate 16 10/06/24 20:11 Blood Pressure 106/61 10/06/24 20:11 Pulse Oximetry 97 10/06/24 20:11 Oxygen Delivery Room Air 10/06/24 17:42 <Brown Croft MD - Last Filed: 10/06/24 22:04> Medical Decision Making MDM Narrative Medical decision making narrative: [age] year presented to the ED for lower chest pain/epigastric pain and transient dyspnea on exertion. Initial vital signs stable. She had reproducible lower sternal tenderness to palpation and epigastric tenderness to palpation. Cbc and CMP without significant abnormalities. Troponin negative. Repeat troponin negative. Chest x-ray showed no acute process. Patient was given Toradol with improvement of her symptoms. Low suspicion for ACS at this time. Patient likely has atypical chest pain. She was advised to follow-up with her PCP next week for evaluation. Patient was agreeable to plan. Given strict return precautions. <Brown Croft MD - Last Filed: 10/06/24 22:04> Differential Diagnosis Differential Diagnosis: ACS, GERD, costochondritis, PUD <Brown Croft MD - Last Filed: 10/06/24 22:04> Vital Signs Vital Signs: Vital Signs Temperature 97.4 F L 10/06/24 13:57 Pulse Rate 94 10/06/24 13:57 Respiratory Rate 18 10/06/24 13:57 Blood Pressure 108/57 L 10/06/24 13:57 Pulse Oximetry 99 10/06/24 13:57 Oxygen Delivery Room Air 10/06/24 13:57 Temperature 97.7 F 10/06/24 20:11 Pulse Rate 73 10/06/24 20:11 Respiratory Rate 16 10/06/24 20:11 Blood Pressure 106/61 10/06/24 20:11 Pulse Oximetry 97 10/06/24 20:11 Oxygen Delivery Room Air 10/06/24 17:42 <Fiorella Molina PA-C - Last Filed: 10/07/24 10:04> Vital Signs Temperature 97.4 F L 10/06/24 13:57 Pulse Rate 94 10/06/24 13:57 Respiratory Rate 18 10/06/24 13:57 Blood Pressure 108/57 L 10/06/24 13:57 Pulse Oximetry 99 10/06/24 13:57 Oxygen Delivery Room Air 10/06/24 13:57 Temperature 97.7 F 10/06/24 20:11 Pulse Rate 73 10/06/24 20:11 Respiratory Rate 16 10/06/24 20:11 Blood Pressure 106/61 10/06/24 20:11 Pulse Oximetry 97 10/06/24 20:11 Oxygen Delivery Room Air 10/06/24 17:42 <Brown Croft MD - Last Filed: 10/06/24 22:04> Lab Data Result diagrams: 10/06/24 16:39 10/06/24 16:39 <Fiorella Molina PA-C - Last Filed: 10/07/24 10:04> Labs: Lab Results 10/06/24 10/06/24 Range/Units 16:39 18:34 WBC 8.6 (4.5-10.0) K/mm3 RBC 4.69 (4.2-5.4) M/mm3 Hgb 13.1 (12.0-15.0) g/dL Hct 39.6 (37.0-47.0) % MCV 84.4 (80-100) fl MCH 27.9 (26-34) pg MCHC 33.1 (32-36) g/dl RDW 13.0 (11.5-14.5) % Plt Count 231 (150-375) k/mm3 MPV 9.1 (7.4-10.4) fl Immature Gran % (Auto) 0.2 (0-0.5) % Neut % (Auto) 62.8 (45.5-73.1) % Lymph % (Auto) 27.0 (18.3-44.2) % [place] % (Auto) 7.7 (2.6-8.5) % Eos % (Auto) 1.9 (0-4.4) % Baso % (Auto) 0.4 (0.2-1.2) % Lymph # (Auto) 2.31 (0.9-3.2) K/mm3 [place] # (Auto) 0.7 H (0.1-0.6) K/mm3 Eos # (Auto) 0.2 (0-0.3) K/mm3 Baso # (Auto) 0.0 (0.0-0.1) K/mm3 Abs Immat Gran (auto) 0.02 (0.00-0.031) K/mm3 Absolute Neuts (auto) 5.4 (1.3-6.7) K/mm3 Absolute Nucleated RBC 0.000 (0.0-0.012) K/mm3 Nucleated RBC % 0.0 (0.0-0.2) % PT 13.3 (11.1-14.7) Seconds INR 1.0 APTT 29.4 (22.3-36.8) Seconds Sodium 139 (137-145) mmol/L Potassium 4.0 (3.4-5.0) mmol/L Chloride 107 (98-107) mmol/L Carbon Dioxide 24 (22-30) mmol/L Anion Gap 8 (4-12) mmol/L BUN 19 H (7-17) mg/dL Creatinine 0.88 (0.7-1.0) mg/dL Estim Creat Clear Calc 58 ml/min Estimated GFR > 60 (59 - ) Glucose 98 (65-110) mg/dL Calcium 10.0 (8.4-10.2) mg/dL Total Bilirubin 0.3 (0.2-1.3) mg/dL AST 28 (14-36) U/L ALT 20 (6-35) U/L Alkaline Phosphatase 93 (38-126) U/L Troponin I < 0.012 < 0.012 (0.000-0.034) ng/mL Total Protein 7.2 (6.3-8.2) g/dL Albumin 4.1 (3.5-5.1) g/dL Lipase 80 (23-300) U/L <Fiorella Molina PA-C - Last Filed: 10/07/24 10:04> Lab Results 10/06/24 10/06/24 Range/Units 16:39 18:34 WBC 8.6 (4.5-10.0) K/mm3 RBC 4.69 (4.2-5.4) M/mm3 Hgb 13.1 (12.0-15.0) g/dL Hct 39.6 (37.0-47.0) % MCV 84.4 (80-100) fl MCH 27.9 (26-34) pg MCHC 33.1 (32-36) g/dl RDW 13.0 (11.5-14.5) % Plt Count 231 (150-375) k/mm3 MPV 9.1 (7.4-10.4) fl Immature Gran % (Auto) 0.2 (0-0.5) % Neut % (Auto) 62.8 (45.5-73.1) % Lymph % (Auto) 27.0 (18.3-44.2) % [place] % (Auto) 7.7 (2.6-8.5) % Eos % (Auto) 1.9 (0-4.4) % Baso % (Auto) 0.4 (0.2-1.2) % Lymph # (Auto) 2.31 (0.9-3.2) K/mm3 [place] # (Auto) 0.7 H (0.1-0.6) K/mm3 Eos # (Auto) 0.2 (0-0.3) K/mm3 Baso # (Auto) 0.0 (0.0-0.1) K/mm3 Abs Immat Gran (auto) 0.02 (0.00-0.031) K/mm3 Absolute Neuts (auto) 5.4 (1.3-6.7) K/mm3 Absolute Nucleated RBC 0.000 (0.0-0.012) K/mm3 Nucleated RBC % 0.0 (0.0-0.2) % PT 13.3 (11.1-14.7) Seconds INR 1.0 APTT 29.4 (22.3-36.8) Seconds Sodium 139 (137-145) mmol/L Potassium 4.0 (3.4-5.0) mmol/L Chloride 107 (98-107) mmol/L Carbon Dioxide 24 (22-30) mmol/L Anion Gap 8 (4-12) mmol/L BUN 19 H (7-17) mg/dL Creatinine 0.88 (0.7-1.0) mg/dL Estim Creat Clear Calc 58 ml/min Estimated GFR > 60 (59 - ) Glucose 98 (65-110) mg/dL Calcium 10.0 (8.4-10.2) mg/dL Total Bilirubin 0.3 (0.2-1.3) mg/dL AST 28 (14-36) U/L ALT 20 (6-35) U/L Alkaline Phosphatase 93 (38-126) U/L Troponin I < 0.012 < 0.012 (0.000-0.034) ng/mL Total Protein 7.2 (6.3-8.2) g/dL Albumin 4.1 (3.5-5.1) g/dL Lipase 80 (23-300) U/L <Brown Croft MD - Last Filed: 10/06/24 22:04> Imaging Data Radiologist's impression: Impressions Chest X-Ray 10/06/24 16:18 IMPRESSION: 1: NO ACUTE CARDIOPULMONARY DISEASE. <Brown Croft MD - Last Filed: 10/06/24 22:04> ECG Data EKG #1: ECG completion date: 10/06/24 <Brown Croft MD - Last Filed: 10/06/24 22:04> ECG completion time: 16:34 <Brown Croft MD - Last Filed: 10/06/24 22:04> Interpretation: Normal sinus rhythm rate of 79, normal axis, normal intervals, no acute ST or T-wave changes <Brown Croft MD - Last Filed: 10/06/24 22:04> Critical Care Time Critical Care Time Critical Care Time: No <Fiorella Molina PA-C - Last Filed: 10/07/24 10:04> Discharge Plan Discharge Clinical Impression: Atypical chest pain <YONAS Bryan Last Filed: 10/07/24 10:04> Patient Disposition: Home <YONAS Bryan Last Filed: 10/07/24 10:04> Condition: Stable <YONAS Bryan Last Filed: 10/07/24 10:04> Instructions: Antibiotic Form, Chest Pain (ED) <YONAS Bryan Last Filed: 10/07/24 10:04> Additional Instructions: Follow-up with PCP next week. You may take Tylenol for pain. Return ED for any new or worsening symptoms. <YONAS Bryan Last Filed: 10/07/24 10:04> Patient Language: Brazilian <YONAS Bryan Last Filed: 10/07/24 10:04> Prescriptions: No Action benzonatate 100 mg capsule 100 mg PO TID PRN acetaminophen [Pain Relief (acetaminophen)] 650 mg tablet extended release 650 mg PO Q12H albuterol sulfate 90 mcg/actuation HFA aerosol inhaler INHALATION naproxen [Naprosyn] 500 mg tablet 500 mg PO BID PRN (Reason: pain) Qty: 14 0RF <YONAS Bryan Last Filed: 10/07/24 10:04> Follow-up/Referrals: Myah,Sallie Delacruz, MUSIC COORDINATOR [Primary Care Provider, Unknown] <YONAS Bryan Last Filed: 10/07/24 10:04>
--- NOTE | 2024-10-06 15:28 | ECG_ITS ---
Test Date: 2024-10-06 16:34:04 Measurements Intervals [place] Rate: 79 P: 56 [place]: 165 QRS: 6 QRSD: 84 T: 48 QT: 359 QTc: 412 Interpretive Statements SINUS RHYTHM NORMAL ECG No previous ECG available for comparison Electronically Signed On 10-06-2024 16:36:53 CDT by Zen Rodgers D.O.
[2024-10-06 16:47] LABS: Hematocrit 39.6 % (37.0-47.0); Hemoglobin 13.1 g/dL (12.0-15.0); Immature Granulocyte Percent A 0.2 % (0-0.5); Lymphocytes Absolute Auto 2.31 K/mm3 (0.9-3.2); Mean Corpuscular HGB Conc 33.1 g/dl (32-36); Mean Corpuscular Hemoglobin 27.9 pg (26-34); Mean Corpuscular Volume 84.4 fl (80-100); Nucleated Red Blood Cells Absolute Auto 0.000 K/mm3 (0.0-0.012); Nucleated Red Blood Cells Perc 0.0 % (0.0-0.2); Platelet Count Result 231 k/mm3 (150-375); Red Blood Count 4.69 M/mm3 (4.2-5.4); White Blood Count 8.6 K/mm3 (4.5-10.0)
[2024-10-06 16:56] LABS: Alanine Aminotransferase 20 U/L (6-35); Albumin Level 4.1 g/dL (3.5-5.1); Alkaline Phosphatase 93 U/L (38-126); Anion Gap 8 mmol/L (4-12); Aspartate Amino Transferase 28 U/L (14-36); Bilirubin,Total 0.3 mg/dL (0.2-1.3); Blood Urea Nitrogen 19 mg/dL (7-17); Calcium 10.0 mg/dL (8.4-10.2); Carbon Dioxide 24 mmol/L (22-30); Chloride 107 mmol/L (98-107); Estimated CRCL calculation 58 ml/min; Estimated Glomerular Filt Rate > 60; Glucose 98 mg/dL (65-110); Lipase 80 U/L (23-300); Potassium 4.0 mmol/L (3.4-5.0); Sodium 139 mmol/L (137-145); Total Protein 7.2 g/dL (6.3-8.2)
[2024-10-06 17:08] LABS: Troponin I < 0.012 ng/mL (0.000-0.034)
[2024-10-06 17:14] LABS: INR 1.0; Prothrombin Time 13.3 Seconds (11.1-14.7)
[2024-10-06 17:15] LABS: Partial Thromboplastin Time 29.4 Seconds (22.3-36.8)
[2024-10-06] MEDS: ASPIRIN 81 MG CHEWABLE TABLET 324 MG PO (17:48)
--- NOTE | 2024-10-06 17:48 | PC.NURSE ---
Pt states she took 1 baby ASA at 1200 today
--- NOTE | 2024-10-06 18:30 | ECG_ITS ---
Test Date: 2024-10-06 18:47:26 Measurements Intervals [place] Rate: 66 P: 36 [place]: 150 QRS: 15 QRSD: 85 T: 45 QT: 398 QTc: 419 Interpretive Statements SINUS RHYTHM BASELINE ARTIFACT- I, II, AVR, AVL NORMAL ECG Compared to ECG 10/06/2024 16:34:04 No significant changes Electronically Signed On 10-06-2024 19:50:08 CDT by Zen Rodgers D.O.
[2024-10-06 19:00] LABS: Troponin I < 0.012 ng/mL (0.000-0.034)
[2024-10-06] MEDS: KETOROLAC 30 MG/ML VIAL (*BKC) IV PUSH (19:08)
== END 2024-10-06 20:12 | disposition home or self-care (01) ==
PROVIDERS: Physician Assistant; Emergency Provider Student in an Organized Health Care Education/Training Program
DX: R07.89 Other chest pain (principal); M19.90 Unspecified osteoarthritis, unspecified site; J45.909 Unspecified asthma, uncomplicated
CPT/HCPCS: 36415; 71046; 80053; 83690; 84484; 85025; 85610; 85730; 93005; 96374; 99284; A9270; J1885